=== PATIENT | female | born 1990 | race Caucasian/White ===

== ENCOUNTER 2021-05-03 08:41 | Day surgery (SDC) | payer MEDICAID ==
[~2021-05-03 08:41] MED LIST: Doxycycline 100 MG Cap PO ONE; Lactated Ringers 1,000 ML IV SCH
[2021-05-03] MEDS ORDERED: Doxycycline 100 MG in Sodium Chloride 0.9% 100 ML IV ONE (09:45)
--- NOTE | 2021-05-03 09:53 | PCM.PREANE ---
Preanesthetic Assessment - Procedure Proposed Procedure: D&C - Anesthesia/Transfusion/Family Hx Anesthesia History: Prior Anesthesia Without Reaction Family History of Anesthesia Reaction: No Transfusion History: No Prior Transfusion(s) Intubation History: Unknown - Review of Systems General: No Symptoms Pulmonary: No Symptoms (Smokes 1/4 PPD) Cardiovascular: No Symptoms Gastrointestinal: No Symptoms Neurological: No Symptoms Other: Reports: None - Physical Assessment NPO Status Date: 05/02/21 NPO Status Time: 18:30 Height: 5 ft 7 in Weight: 67.585 kg ASA Class: 2 Mental Status: Alert & Oriented x3 Airway Class: Mallampati = 1 Dentition: Reports: Normal Dentition Thyro-Mental Finger Breadths: 3 Mouth Opening Finger Breadths: 3 ROM/Head Extension: Full Lungs: Clear to Auscultation, Normal Respiratory Effort Cardiovascular: Regular Rate, Regular Rhythm - Lab Values: Laboratory Last Values SARS-CoV-2 RNA ([facility]) NEGATIVE (NEGATIVE) 05/03/21 08:35 - Allergies Allergies/Adverse Reactions: Allergies Allergy/AdvReac Type Severity Reaction Status Date / Time No Known Allergies Allergy Verified 05/03/21 07:38 - Acknowledgements Anesthesia Type Planned: General Anesthesia Pt an Appropriate Candidate for the Planned Anesthesia: Yes Alternatives and Risks of Anesthesia Discussed w Pt/Guardian: Yes Pt/Guardian Understands and Agrees with Anesthesia Plan: Yes PreAnesthesia Questionnaire HEENT History: Reports: None Cardiovascular History: Reports: None Respiratory History: Reports: None Gastrointestinal History: Reports: None Genitourinary History: Reports: None 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: Musculoskeletal History: Reports: Fracture Other Musculoskeletal History: hx fx lower back, fx Rt wrist Neurological History: Reports: None Psychiatric History: Reports: Anxiety, Depression Endocrine/Metabolic History: Reports: None Hematologic History: Reports: None Immunologic History: Reports: None Oncologic (Cancer) History: Reports: None Dermatologic History: Reports: None - Infectious Disease History Infectious Disease History: Reports: Mononucleosis - Past Surgical History Head Surgeries/Procedures: Reports: None HEENT Surgical History: Reports: None Cardiovascular Surgical History: Reports: None Respiratory Surgical History: Reports: None GI Surgical History: Reports: None Female Surgical History: Reports: None Endocrine Surgical History: Reports: None Neurological Surgical History: Reports: Other (See Below) Other Neurological Surgeries/Procedures: Wore a back brace for 6 months after a fall that injured her lumbar spine Musculoskeletal Surgical History: Reports: Other (See Below) Other Musculoskeletal Surgeries/Procedures:: surgery for fx right wrist Oncologic Surgical History: Reports: None Dermatological Surgical History: Reports: None - SUBSTANCE USE Tobacco Use Status *Q: Current Every Day Tobacco User Tobacco Use Within Last Twelve Months: Cigarettes - HOME MEDS Home Medications: Home Meds . [No Known Home Meds] 05/03/21 [History] - CURRENT (IN HOUSE) MEDS Current Meds: Current Medications Lactated Ringer's (Ringers, Lactated) 1,000 mls @ 100 mls/hr IV ASDIRECTED RICARDO Doxycycline Hyclate 100 mg/ (Sodium Chloride) 100 mls @ 100 mls/hr IV ONETIME ONE Stop: 05/03/21 10:44 Discontinued Medications Doxycycline Hyclate (Doxycycline 100 Mg Cap) 100 mg PO ONETIME ONE Stop: 05/03/21 07:39
[2021-05-03] MEDS ORDERED: Propofol 200 MG/20 ML SDV ONE (10:05)
[2021-05-03] MEDS ORDERED: fentaNYL 250 MCG/5 ML SDV ONE (10:05)
--- NOTE | 2021-05-03 11:00 | PCM.OPNOTE ---
<Amber Steve - Last Filed: 05/03/21 10:55> - General Post-Op/Procedure Note Date of Surgery/Procedure: 05/03/21 Operative Procedure(s): Suction dilation and curettage Findings: 8-week sized retroverted uterus. Minimal retained products of conception Pre Op Diagnosis: 30-year-old at 9w1d for spontaneous with retained products of conception Post-Op Diagnosis: Same Anesthesia Technique: General ET Tube Primary Surgeon: Lazaro Mcghee Insurance Biller: Amber Steve Pathology: Retained products of conception Fluid Replacement, Intraop: 1,000 EBL in mLs: 20 Complications: None known Condition: Stable <Lazaro Mcghee - Last Filed: 05/03/21 11:04> - General Post-Op/Procedure Note Operative Procedure(s): same Findings: Agree Pre Op Diagnosis: 30yo @ 9w1d with Retained Products. s/p Medical Management X 2 Post-Op Diagnosis: Same Free Text/Narrative:: Intake & Output 05/02/21 05/03/21 05/03/21 22:59 06:59 14:59 Intake Total 1000 Balance 1000
[2021-05-03] MEDS ORDERED: Acetaminophen/HYDROcodone 325-5 MG Tab PO PRN (11:04)
--- NOTE | 2021-05-03 11:05 | PCM.POSTAN ---
POST ANESTHESIA ASSESSMENT - MENTAL STATUS Mental Status: Alert, Oriented - VITAL SIGNS Vital Signs: Last Vital Signs Temp 97.3 F 05/03/21 09:37 Pulse 69 05/03/21 11:01 Resp 10 L 05/03/21 11:01 BP 112/75 05/03/21 11:01 Pulse Ox 100 05/03/21 11:01 - RESPIRATORY Respiratory Status: Respiratory Rate WNL, Airway Patent, O2 Saturation Stable - CARDIOVASCULAR CV Status: Pulse Rate WNL, Blood Pressure Stable - GASTROINTESTINAL GI Status: No Symptoms - PAIN Pain Score: 3 - POST OP HYDRATION Hydration Status: Adequate & Stable
--- NOTE | 2021-05-03 11:10 | PCM48HPAN ---
Post Anesthesia Note - EVALUATION WITHIN 48HRS OF ANESTHETIC Vital Signs in Normal Range: Yes Patient Participated in Evaluation: Yes Respiratory Function Stable: Yes Airway Patent: Yes Cardiovascular Function Stable: Yes Hydration Status Stable: Yes Pain Control Satisfactory: Yes Nausea and Vomiting Control Satisfactory: Yes Mental Status Recovered: Yes Vital Signs: Last Vital Signs Temp 97.3 F 05/03/21 09:37 Pulse 67 05/03/21 11:06 Resp 10 L 05/03/21 11:06 BP 110/70 05/03/21 11:06 Pulse Ox 100 05/03/21 11:06 - COMMENTS/OBSERVATIONS Free Text/Narrative:: Pt doing well post-op. VSS. No apparent anesthetic complications. Dr. Sage Briggs
[2021-05-03] MEDS ORDERED: Ketorolac 30 MG/ML SDV ONE (11:12)
[2021-05-03] MEDS ORDERED: Ondansetron 4 MG/2 ML SDV ONE (11:14)
[2021-05-03] MEDS ORDERED: Glycopyrrolate 0.2 MG/ML SDV ONE (11:14)
[2021-05-03] MEDS ORDERED: Ketorolac 30 MG/ML SDV IVPUSH ONE (11:30)
--- NOTE | 2021-05-03 13:52 | OR ---
SURGEON: MARKEL WEATHERS DATE OF PROCEDURE: 05/03/2021 PREOPERATIVE DIAGNOSES: A 31-year-old G2, P1-0-0-1 at 9 weeks and 1 days with retained products of conception, status post medical management of anembryonic x2. POSTOPERATIVE DIAGNOSES: A 31-year-old G2, P1-0-0-1 at 9 weeks and 1 days with retained products of conception, status post medical management of anembryonic x2. PROCEDURE: Suction dilatation and curettage. ESTIMATED BLOOD LOSS: 20. INTRAVENOUS FLUIDS: 1000. ANESTHESIA: General. NOTES AND FINDINGS: A normal-sized anteverted uterus. Minimal products of conception retrieved. BRIEF HISTORY ABOUT THE PATIENT: She is a 31-year-old G2, P1-0-0-1, 9 weeks and 1 day, who was seen for routine care. She was noted to have an anembryonic . She opted for medical management. After medical management, the patient still complained of bleeding. On ultrasound, she was found to have confirmed retained product. She opted for another dose of Cytotec, which she received. However, ultrasound was done, retained product was still noted. As a result, the patient was consented for surgical management with dilatation and curettage, which she accepted. She was explained of the risks, benefits, and alternatives. She was given the opportunity to ask questions, and all questions were answered. PROCEDURE IN DETAIL: The patient was taken to the operating room where general anesthesia was performed without difficulty. She was prepared and draped in the dorsal lithotomy position with Francisco stirrups. A speculum was placed to expose the cervix. The anterior lip of the cervix was grasped with Allis clamp. The cervix was dilated to accommodate a 9 mm curved curette. The suction was placed in a rotatory motion. Minimal products were retrieved after which a size 3 sharp curette was placed, and all fields of the uterus was then scraped, and the suction was reintroduced, the debris was removed. Minimal bleeding was noted. The speculum was then removed. The Allis was removed. The patient will be awoken from general anesthesia. She tolerated the procedure well. All instrument and pad counts were correct x2. Prior to the procedure, the patient received doxycycline for infection prophylaxis. PERI WATKINS /[id number] MTDD
== END 2021-05-03 13:00 | disposition home or self-care (01) ==
LOC: MW.SDS 08:41
PROVIDERS: ATTEND Obstetrics & Gynecology
DX: O73.1 Retained portions of placenta and membranes, without hemorrhage (principal); O02.0 Blighted ovum and nonhydatidiform mole; Z01.812 Encounter for preprocedural laboratory examination; Z20.822 Contact with and (suspected) exposure to COVID-19; F17.210 Nicotine dependence, cigarettes, uncomplicated
CPT/HCPCS: 36415; 59812; 85027; 87635; 88305; J0330; J1885; J2405; J2704; J3010; J3490; J7120; 01965; U0002